=== PATIENT | female | born 1985 | race Two or more races ===

== ENCOUNTER 2023-09-14 12:51 | Emergency (ER) | payer MEDICAID ==
[~2023-09-14] VITALS: Ht 170.2 cm; Wt 86.3 kg
[~2023-09-14 12:51] MED LIST: ACET500C PO
[2023-09-14 14:23] LABS: Basophils # (auto) 0 10 ^3/uL (0-0.2); Basophils % (auto) 0.5 % (0.0-2.0); Eosinophils # (auto) 0.1 10 ^3/uL (0-0.8); Eosinophils % (auto) 0.6 % (0.0-7.0); Hematocrit 41.4 % (36.0-46.0); Hemoglobin 13.7 g/dL (12.2-16.2); Lymphocytes # (auto) 1.6 10 ^3/uL (0.4-5.4); Mean Corpuscular Hemoglobin 29.8 pg (28.0-32.0); Mean Corpuscular Volume 90.5 fL (80.0-100.0); Monocytes # (auto) 0.4 10 ^3/uL (0-1.3); Monocytes % (auto) 4.6 % (0.0-12.0); Neutrophils # (auto) 7.3 10 ^3/uL (1.6-8.6); Neutrophils % (auto) 77.3 % (37.0-80.0); Red Blood Cells 4.58 10^6/uL (4.0-5.20); Red Cell Distribution Width 13.2 % (11.8-14.3); White Blood Cell 9.4 10^3/uL (4.4-10.8)
[2023-09-14 14:32] LABS: Anion Gap 6 (5-15); Carbon Dioxide 28 mmol/L (20-30); Chloride 104 mmol/L (98-107); Potassium 3.8 mmol/L (3.5-5.1); Sodium 138 mmol/L (136-145)
[2023-09-14 14:33] LABS: Calcium 9.4 mg/dL (8.5-10.1)
[2023-09-14 14:38] LABS: BUN/Creatinine Ratio 7.6 (10.0-20.0); Blood Urea Nitrogen 7 mg/dL (9-23); Glucose 120 mg/dL (74-106)
[2023-09-14 17:33] VITALS: BP 120/74; PULSE 98; RESP 16; TEMP 98.4; O2SAT 96
== END 2023-09-14 17:38 | disposition home or self-care (01) ==
LOC: ER 12:51
DX: S16.1XXA Strain of muscle, fascia and tendon at neck level, initial encounter (principal); R10.2 Pelvic and perineal pain; R51.9 Headache, unspecified; X58.XXXA Exposure to other specified factors, initial encounter; Y93.89 Activity, other specified; Y92.89 Other specified places as the place of occurrence of the external cause; Y99.8 Other external cause status
CPT/HCPCS: 36415; 70450; 80048; 84702; 85025; 93005

== ENCOUNTER 2024-08-10 15:30 | Emergency (ER) | payer MEDICAID ==
[~2024-08-10] VITALS: Ht 175.3 cm; Wt 84.3 kg
[2024-08-10 16:07] LABS: Urine WBC None Seen /hpf (0 - 5)
[2024-08-10 16:10] LABS: Basophils # (auto) 0.1 10 ^3/uL (0-0.2); Basophils % (auto) 1.1 % (0.0-2.0); Eosinophils # (auto) 0.2 10 ^3/uL (0-0.8); Eosinophils % (auto) 1.9 % (0.0-7.0); Hematocrit 42.2 % (36.0-46.0); Hemoglobin 14.4 g/dL (12.2-16.2); Lymphocytes # (auto) 1.7 10 ^3/uL (0.4-5.4); Lymphocytes % (auto) 18.7 % (10.0-50.0); Mean Corpuscular Hgb Conc. 34.2 g/dL (32.0-36.0); Mean Corpuscular Volume 90.8 fL (80.0-100.0); Monocytes # (auto) 0.6 10 ^3/uL (0-1.3); Monocytes % (auto) 6.5 % (0.0-12.0); Neutrophils # (auto) 6.5 10 ^3/uL (1.6-8.6); Neutrophils % (auto) 71.8 % (37.0-80.0); Platelet Count (auto) 294 10^3/uL (140-450); Red Blood Cells 4.65 10^6/uL (4.0-5.20); Red Cell Distribution Width 13.7 % (11.8-14.3); White Blood Cell 9.1 10^3/uL (4.4-10.8)
[2024-08-10 16:13] LABS: Urine Bacteria FEW /hpf (None Seen); Urine Blood Negative /uL (Negative); Urine Clarity Clear (Clear); Urine Color Colorless (Yellow); Urine Protein, UAD Negative (Negative); Urine Specific Gravity 1.006 (1.001-1.035); Urine Urobilinogen Normal (Negative)
[2024-08-10 16:16] LABS: Chloride 106 mmol/L (98-107); Potassium 3.8 mmol/L (3.5-5.1); Sodium 139 mmol/L (136-145)
[2024-08-10 16:17] LABS: Anion Gap 5 (5-15); Calcium 10.4 mg/dL (8.7-10.4); Carbon Dioxide 28 mmol/L (20-31)
[2024-08-10 16:22] LABS: BUN/Creatinine Ratio 15.4 (10.0-20.0); Blood Urea Nitrogen 12 mg/dL (9-23); Glucose 107 mg/dL (74-106)
[2024-08-10 16:52] VITALS: BP 124/80; RESP 18; TEMP 98.6; O2SAT 100
[2024-08-10 16:56] VITALS: PULSE 99
--- NOTE | 2024-08-10 16:56 | ED.PDOC ---
History of Present Illness HPI Comments A 39 YEAR OLD FEMALE PRESENTS TO THE ED WITH COMPLAINT OF DIZZINESS AND CHEST DISCOMFORT. PATIENT STATES SHE HAS A HISTORY OF DDD IN HER C-SPINE AND T-SPINE AND NOTES HER PAIN HAS BEEN CAUSING HER TO FEEL DIZZY WHEN MOVING TOO MUCH. PATIENT REPORTS SHE ALSO HAD MILD CHEST DISCOMFORT AND NUMBNESS/TINGLING SENSA TION IN HER HANDS WITH HER DIZZINESS FOR THE PAST 3 DAYS. PATIENT NOTES SHE HAS BEEN UNDER STRESS RECENTLY AND ALSO HAD A IUD PLACED 1 WEEK AGO, BUT IS NOT SURE IF THIS HAS ANYTHING TO DO WITH HER CURRENT SYMPTOMS. PATIENT DENIES VISION CHANGES, SLURRED SPEECH, ONE-SIDED WEAKNESS, FACIAL DROOP, FEVER, CHILLS, SHORTNESS OF BREATH, ABDOMINAL PAIN, NAUSEA, VOMITING, HEADACHE, OR OTHER COMPLAINTS. NO OTHER SYMPTOMS OR MODIFYING FACTORS AT THIS TIME. PATIENT IS ALERT, ORIENTED X 4, AND HAS STEADY GAIT. Chief Complaint: Dizziness Time Seen by MD: 15:46 Primary Care Provider: oneyda Jones Notes: Nurses Notes, Medications, Allergies Allergies: Coded Allergies: NO KNOWN ALLERGIES (Unverified , 11/30/13) Home Meds Active Scripts Methocarbamol (Methocarbamol) 750 Mg Tab, 750 MG PO BID, #20 TAB Prov:LYNDON SYED 08/10/24 Ibuprofen (Ibuprofen) 800 Mg Tab, 1 TAB PO TID, #30 TAB Prov:LYNDON SYED 08/10/24 Acetaminophen (Acetaminophen) 500 Mg Cap, 500 MG PO Q6HP, #30 CAP 0 Refills Prov:BABS CARR 12/31/13 Information Source: Patient Mode of Arrival: Ambulatory Severity: Moderate Timing: Days Duration: Since onset, Days Prehospital treatment: None Medication Refill: For: Other (DIZZINESS AND CHEST DISCOMFORT) Past Medical History PAST MEDICAL HISTORY: Anxiety Past Medical History (Other): CHRONIC NECK AND MIDDLE BACK PAIN, DDD OF NECK AND BACK Surgical History: Denies all surgeries [employer]INO [employer]ER History: No 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 History Family History Family History: Reviewed,noncontributory to illness Social History Smoker: Non-Smoker Alcohol: Rarely Drugs: Denies Drug Use Lives In: Home Constitutional: reports: others (ANXIOUS ); denies: chills, diaphoresis, fatigue, fever, malaise, sweats, weakness EENTM: denies: blurred vision, double vision, ear bleeding, ear discharge, ear drainage, ear pain, ear ringing, eye pain, eye redness, hearing loss, mouth pain, mouth swelling, nasal discharge, nose bleeding, nose congestion, nose pain, photophobia, tearing, throat pain, throat swelling, voice changes, others Respiratory: denies: cough, hemoptysis, orthopnea, SOB at rest, shortness of breath, SOB with excertion, stridor, wheezing, others Cardiovascular: denies: chest pain, dizzy spells, diaphoresis, Dyspnea on exertion, edema, irregular heart beat, left arm pain, lightheadedness, palpitations, PND, syncope, others Gastrointestinal: denies: abdomen distended, abdominal pain, blood streaked bowels, constipated, diarrhea, dysphagia, difficulty swallowing, hematemesis, melena, nausea, poor appetite, poor fluid intake, rectal bleeding, rectal pain, vomiting, others Genitourinary: denies: abnormal vagina bleeding, burning, dyspareunia, dysuria, flank pain, frequency, hematuria, incontinence, pain, , vagina discharge, urgency, others Neurological: reports: dizziness, tingling; denies: fainting, headache, left sided numbness, left sided weakness, numbness, paresthesia, pre-existing defi cit, right sided numbness, right sided weakness, seizure, speech problems, tremors, weakness, others Musculoskeletal: reports: back pain, muscle pain, neck pain; denies: gout, joint pain, joint swelling, muscle stiffness, others Integumetry: denies: bruises, change in color, change in hair/nails, dryness, laceration, lesions, lumps, rash, wounds, others Allergic/Immunocompromised: denies: Difficulty Healing, Frequent Infections, Hives, Itching, others Hematologic/Lymphatic: denies: anemia, blood clots, easy bleeding, easy bruising, swollen glands, others Endocrine: denies: excessive hunger, excessive sweating, excessive thirst, excessive urination, flushing, intolerance to cold, intolerance to heat, unexplained weight gain, unexplained weight loss, others Psychiatric: denies: anxiety, bipolar disorder, depression, hopeless, panic disorder, schizophrenia, sleepless, suicidal, others All Other Systems: Reviewed and Negative Physical Exam General Appearance: No Apparent Distress, Normal, Other (ANXIOUS ) HEENT: Normal ENT Inspection, PERRL/EOMI, Pharynx Normal, TMs Normal Neck: Full Range of Motion, Normal Inspection, Supple, Tender Lateral (MUSCLE SPASM ON POSTERIOR NECK, NO BONY TENDERNESS AND SWELLING. ) Respiratory: Chest Non-Tender, Lungs Clear, No Accessory Muscle Use, No Respiratory Distress, Normal Breath Sounds Cardiovascular: No Edema, No JVD, No Murmur, No Gallop, Normal Peripheral Pulses, Regular Rate/Rhythm Breast Exam: Deferred Gastrointestinal: No Organomegaly, Non Tender, No Pulsatile Mass, Normal Bowel Sounds, Soft Genitalia: Deferred Pelvic: Deferred Rectal: Deferred Extremities: No calf tenderness, Normal capillary refill, Normal inspection, Normal range of motion, Non-tender, No pedal edema Musculoskeletal : Apperance: Normal Neurologic: Alert, [employer] II-XII nml as Tested, No Motor Deficits, Normal Affect, Normal Mood, No Sensory Deficits Cerebellar Function: Normal Reflexes: Normal Skin: Dry, Normal Color, Warm Peripheral Pulses: 2+ carotid (R), 2+ carotid (L) Lymphatic: No Adenopathy Was a procedure done? Was a procedure done?: No EKG EKG : Pulse Rate (adult): 99 Slater: Normal Cardiac Rhythm: NSR Block: None Hypertrophy: None ST: Normal Differential Dx Considerations may include: DIZZINESS, NONCARDIAC CHEST PAIN, ANXIETY REACTION, OTITIS MEDIA, OTITIS EXTERNA, SINUSITIS, HYPERVENTILATION SYNDROME, AK X-Ray, Labs, Meds, VS Vital Signs Date Time Temp Pulse Resp B/P (MAP) Pulse Ox O2 Delivery O2 Flow Rate FiO2 08/10/24 16:56 99 08/10/24 16:52 98.6 95 18 124/80 (95) 100 98.6 08/10/24 16:52 95 18 100 Room Air 08/10/24 15:55 99 08/10/24 15:51 98.6 95 18 1280 (58) 100 Lab Test 08/10/24 16:01 08/10/24 15:58 Range/Units White Blood Count 9.1 4.4-10.8 10^3/uL Red Blood Count 4.65 4.0-5.20 10^6/uL Hemoglobin 14.4 12.2-16.2 g/dL Hematocrit 42.2 36.0-46.0 % Mean Corpuscular Volume 90.8 80.0-100.0 fL Mean Corpuscular Hemoglobin 31.0 28.0-32.0 pg Mean Corpuscular Hemoglobin Concent 34.2 32.0-36.0 g/dL Red Cell Distribution Width 13.7 11.8-14.3 % Platelet Count 294 140-450 10^3/uL Mean Platelet Volume 7.9 6.9-10.8 fL Neutrophils (%) (Auto) 71.8 37.0-80.0 % Lymphocytes (%) (Auto) 18.7 10.0-50.0 % Monocytes (%) (Auto) 6.5 0.0-12.0 % Eosinophils (%) (Auto) 1.9 0.0-7.0 % Basophils (%) (Auto) 1.1 0.0-2.0 % Neutrophils # (Auto) 6.5 1.6-8.6 10 ^3/uL Lymphocytes # (Auto) 1.7 0.4-5.4 10 ^3/uL Monocytes # (Auto) 0.6 0-1.3 10 ^3/uL Eosinophils # (Auto) 0.2 0-0.8 10 ^3/uL Basophils # (Auto) 0.1 0-0.2 10 ^3/uL Nucleated Red Blood Cells 0.0 % Sodium Level 139 136-145 mmol/L Potassium Level 3.8 3.5-5.1 mmol/L Chloride Level 106 98-107 mmol/L Carbon Dioxide Level 28 20-31 mmol/L Anion Gap 5 5-15 Blood Urea Nitrogen 12 9-23 mg/dL Creatinine 0.78 0.550-1.02 mg/dL Glomerular Filtration Rate Calc 100 >90 mL/min BUN/Creatinine Ratio 15.4 10.0-20.0 Serum Glucose 107 H 74-106 mg/dL Calcium Level 10.4 8.7-10.4 mg/dL Troponin I High Sensitivity < 3 L </=34 ng/L Urine Color Colorless Yellow Urine Clarity Clear Clear Urine pH 7.0 5.0-9.0 Urine Specific [place] 1.006 1.001-1.035 Urine Protein Negative Negative Urine Ketones Negative Negative Urine Blood Negative Negative /uL Urine Nitrite Negative Negative Urine Bilirubin Negative Negative Urine Urobilinogen Normal Negative mg/dL Urine Leukocyte Esterase Negative Negative /uL Urine RBC <1 0 - 4 /hpf Urine WBC None seen 0 - 5 /hpf Urine Squamous Epithelial Cells None seen <5 /hpf Urine Bacteria Few H None Seen /hpf Urine Glucose Normal Normal mg/dL Urine Test Negative Negative Current Medications Medications (Trade) Dose Ordered Sig/Suzette Route Start Time Stop Time Status Last Admin Ketorolac Tromethamine (Toradol Injection) 60 mg ONCE ONCE IM 08/10/24 17:00 08/10/24 17:01 DC 08/10/24 17:18 X-Ray, Labs, Meds, VS Comment LABS ORDERED: CBC, BMP, UA, TROPONIN, URINE REVIEWED AND INTERPRETED RESULTS: NORMAL TREATMENT: TORADOL 60MG IM Time of 1ST Reevaluation: 17:38 Reevaluation 1ST: Improved Patient Education/Counseling: Diagnosis, Treatment, Need For Follow Up Family Education/Counseling: Diagnosis, Treatment, Need For Follow Up Medical Screening: No EMC Exist At This Time Departure 1 Departure Time of Disposition: 17:38 Impression: Primary Impression: Anxiety reaction Additional Impression: Chronic neck pain Disposition: 01 HOME / SELF CARE / HOMELESS Condition: Stable Additional Instructions: FOLLOW-UP WITH PCP IN 1 TO 2 DAYS. TAKE MEDICATIONS PRESCRIBED. RETURN TO ED FOR ANY NEW OR WORSENING SYMPTOMS. e-Prescriptions Methocarbamol (Methocarbamol) 750 Mg Tab 750 MG PO BID, #20 TAB Prov: LYNDON SYED 08/10/24 Ibuprofen (Ibuprofen) 800 Mg Tab 1 TAB PO TID, #30 TAB Prov: LYNDON SYED 08/10/24 Discharged With: Self Critical Care Note Critical Care Time?: No Stability Stability form required: No I personally scribed for LYNDON SYED ([email or web address]) on 08/10/24 at 16:56. Electronically submitted by Adarsh Miller ([employer]). I personally scribed for LYNDON SYED ([email or web address]) on 08/10/24 at 16:58. Electronically submitted by Adarsh Miller ([employer]). I personally scribed for LYNDON SYED ([email or web address]) on 08/10/24 at 17:14. Electronically submitted by Adarsh Miller ([employer]). I personally scribed for LYNDON SYED ([email or web address]) on 08/10/24 at 17:37. Electronically submitted by Adarsh Miller ([employer]). LYNDON SYED Aug 10, 2024 16:56
[2024-08-10] MEDS: KETOROLAC TROMETH 60MG/2ML VIAL IM ONE (17:18)
[2024-08-10] MEDS ORDERED: METH-1182 PO (17:36)
[2024-08-10] MEDS ORDERED: IBUP-1456 PO (17:36)
--- NOTE | 2024-08-13 11:16 | ECG ---
[facility] Test Date: 2024-08-10 Test Time: 15:55:18 Pat Name: MECHE VILLATORO Department: ER Room: Gender: F [employer] Agent: ANDERSON : 1985 Requested By: LYNDON SYED Order Number: [id number] Reading MD: Measurements Intervals Hiram Rate: 99 P: 75 ID: [id number] QRS: 83 QRSD: 89 T: 10 QT: 346 QTc: 444 Interpretive Statements Sinus rhythm Consider right atrial enlargement Please click the below link to view image of tracing.
== END 2024-08-10 17:41 | disposition home or self-care (01) ==
LOC: ER 15:30
DX: F41.1 Generalized anxiety disorder (principal); G89.29 Other chronic pain; R07.89 Other chest pain; R42 Dizziness and giddiness; M54.2 Cervicalgia; Z79.1 Long term (current) use of non-steroidal anti-inflammatories (NSAID); Z32.02 Encounter for pregnancy test, result negative
CPT/HCPCS: 36415; 80048; 81001; 81025; 84484; 85025; 96372; 99283; J1885; J7030